=== PATIENT | female | born 1945 | race Caucasian/White ===

== ENCOUNTER 2017-08-12 18:31 | Emergency (ER) | payer MEDICARE, OTHER ==
[2017-08-12 18:45] VITALS: BP 135/70
[2017-08-12] MEDS ORDERED: SILVER SULFADIAZINE 50 APPL JAR TP ONE ×2 (18:58→19:01)
[2017-08-12] MEDS ORDERED: ACETAMINOPHEN 325 MG TABLET PO ONE (18:59)
[2017-08-12] MEDS ORDERED: ACETAMINOPHEN 325 MG TABLET ONE (19:01)
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
== END 2017-08-12 19:11 | disposition home or self-care (01) ==
LOC: ER 18:31
DX: T23.222A Burn of second degree of single left finger (nail) except thumb, initial encounter (principal); T31.0 Burns involving less than 10% of body surface; X10.2XXA Contact with fats and cooking oils, initial encounter; Y93.G3 Activity, cooking and baking; Y92.009 Unspecified place in unspecified non-institutional (private) residence as the place of occurrence of the external cause; E03.9 Hypothyroidism, unspecified; E78.5 Hyperlipidemia, unspecified; I10 Essential (primary) hypertension; F17.200 Nicotine dependence, unspecified, uncomplicated